=== PATIENT | female | born 1935 | race Caucasian/White ===

== ENCOUNTER 2023-05-29 17:32 | Emergency (ER) | payer MEDICARE ==
[~2023-05-29] VITALS: Ht 149.9 cm; Wt 50.8 kg
[2023-05-29 18:26] LABS: MEAN CORPUSCULAR HEMOGLOBIN 28.1 uug (24.7-32.8); MEAN CORPUSCULAR VOLUME 88.4 fL (75.5-95.3); PLATELET COUNT (AUTO) 214 K/uL (179-408)
[2023-05-29 18:33] LABS: CREATININE 0.7 mg/dL (0.6-1.3); POTASSIUM 3.8 mmol/L (3.5-5.1)
[2023-05-29] MEDS ORDERED: VITAMIN D3 PO (18:48)
[2023-05-29] MEDS ORDERED: BUSP15TA3 PO (18:48)
[2023-05-29] MEDS ORDERED: OXYC5CAP18 PO (18:48)
[2023-05-29] MEDS ORDERED: AMPH10CA8 PO (18:48)
[2023-05-29] MEDS ORDERED: ESCI20TA44 PO (18:48)
[2023-05-29] MEDS ORDERED: ACET-2030 PO (18:48)
[2023-05-29] MEDS ORDERED: FURO40TA5 PO (18:48)
[2023-05-29] MEDS ORDERED: NALO4SPR BNOSTRILS (18:48)
[2023-05-29] MEDS ORDERED: FERR325T28 PO (18:48)
[2023-05-29] MEDS ORDERED: ATOR40TA PO (18:48)
[2023-05-29] MEDS ORDERED: LEVO50TA8 PO (18:48)
[2023-05-29] MEDS ORDERED: ALEN10TA26 PO (18:48)
[2023-05-29] MEDS ORDERED: GABA-532 PO (18:48)
[2023-05-29] MEDS ORDERED: POTA-88 PO (18:48)
[2023-05-29] MEDS ORDERED: CAPS42.52 TP (18:48)
[2023-05-29] MEDS ORDERED: METO-356 PO (18:48)
[2023-05-29] MEDS ORDERED: MAG355OR35 PO (18:48)
[2023-05-29] MEDS ORDERED: LIDO30AD10 TP (18:48)
[2023-05-29] MEDS ORDERED: MAGN400O6 PO (18:48)
[2023-05-29] MEDS ORDERED: LISI20TA30 PO (18:48)
[2023-05-29] MEDS ORDERED: OMEP20CA15 PO (18:48)
[2023-05-29] MEDS ORDERED: ALPR0.25 PO (18:48)
[2023-05-29] MEDS ORDERED: WARF3TAB59 PO (18:48)
[2023-05-29] MEDS ORDERED: WARF-58 PO (18:48)
[2023-05-29] MEDS ORDERED: POLY250017 PO (18:48)
[2023-05-29] MEDS ORDERED: SENN8.6T19 PO (18:48)
--- NOTE | 2023-05-29 19:04 | NUR ---
wayne care done
--- NOTE | 2023-05-29 19:04 | NUR ---
ua collected and sent to lab
--- NOTE | 2023-05-29 19:04 | NUR ---
seen and examined by
[2023-05-29 19:14] LABS: *BILIRUBIN,URIN NEGATIVE (NEGATIVE); *BLOOD, URINE NEGATIVE (NEGATIVE); *CLARITY,URINE CLEAR (CLEAR); *COLOR,URINE YELLOW (YELLOW); *KETONES,URINE NEGATIVE (NEGATIVE); *UROBILINOGEN,URINE 0.2 E.U./dl (NORMAL); LEUKOCYTE ESTERASE ,URINE NEGATIVE (NEGATIVE); NITRITE, URINE NEGATIVE (NEGATIVE); PH,URINE 5.5 (5.0-8.0); UGLUCOSE NEGATIVE (NEGATIVE)
[2023-05-29] MEDS ORDERED: MORPHINE SULFATE 4 MG/1 ML DISP.SYRIN IV ONE ×2 (19:15→22:45)
[2023-05-29] MEDS ORDERED: MORPHINE SULFATE 2 MG/1 ML DISP.SYRIN ONE (19:19)
[2023-05-29 19:52] LABS: BILIRUBIN,DIRECT 0.1 mg/dL (0.0-0.2); BILIRUBIN,TOTAL 0.3 mg/dL (0.2-1.0); TOTAL PROTEIN, SERUM 6.3 g/dL (6.4-8.2)
--- NOTE | 2023-05-29 21:49 | NUR ---
Pt back to ER from CT.
[2023-05-29] MEDS ORDERED: VANCOMYCIN IV 1,000 MG in IV DEXTROSE 5% 250 ML IV ONE (22:15)
[2023-05-29] MEDS ORDERED: PIPERACILLIN SODIUM/TAZOBACTAM 4.5 G in IV DEXTROSE 5% 50 ML IV SCH (22:15)
--- NOTE | 2023-05-29 22:26 | NUR ---
Called Dr. Dhaliwal for Neurosurgery consult, left message.
[2023-05-29] MEDS ORDERED: PIPERACILLIN/TAZO 4.5 GM VIAL IV ONE (22:28)
[2023-05-29] MEDS ORDERED: VANCOMYCIN IV 200 ML ONE (23:16)
[2023-05-29] MEDS ORDERED: MORPHINE SULFATE 4 MG/1 ML DISP.SYRIN ONE (23:23)
--- NOTE | 2023-05-30 00:14 | NUR ---
Received call back from [facility] [facility] [employer], with transfer information, patient going to [facility], Room 4428-1, number to report , Accepted by Dr. Martha Arriaga, will call back for transport eta.
--- NOTE | 2023-05-30 00:28 | NUR ---
Received call back from [facility], eta [id number] for [facility].
[2023-05-30 02:30] VITALS: O2SAT 96
--- NOTE | 2023-05-30 03:24 | NUR ---
Report given to [facility].
[2023-05-30] MEDS ORDERED: MORPHINE SULFATE 4 MG/1 ML DISP.SYRIN ONE ×2 (03:51→05:22)
[2023-05-30] MEDS ORDERED: MORPHINE SULFATE 4 MG/1 ML DISP.SYRIN IV ONE ×2 (04:00→05:30)
--- NOTE | 2023-05-30 05:14 | NUR ---
[facility] arrived to ER to transport patient to [facility], report and documentation given to EMT.
== END 2023-05-30 05:15 | disposition short-term general hospital (02) ==
LOC: ER 17:49
DX: M46.26 Osteomyelitis of vertebra, lumbar region (principal); M46.46 Discitis, unspecified, lumbar region; R10.30 Lower abdominal pain, unspecified; G06.1 Intraspinal abscess and granuloma; R07.89 Other chest pain; I48.91 Unspecified atrial fibrillation; K21.9 Gastro-esophageal reflux disease without esophagitis; E78.5 Hyperlipidemia, unspecified; I10 Essential (primary) hypertension; E03.9 Hypothyroidism, unspecified; I25.10 Atherosclerotic heart disease of native coronary artery without angina pectoris; Z95.0 Presence of cardiac pacemaker; Z95.1 Presence of aortocoronary bypass graft; Z79.01 Long term (current) use of anticoagulants; Z79.899 Other long term (current) drug therapy; Z20.822 Contact with and (suspected) exposure to COVID-19
CPT/HCPCS: 99285; 72131; 96365; 71045; 96366 ×2; 96375; 80076; 80048; 81003; 83880; 85025; 85610; 87040 ×2; 84484; 36415; 74176; 96368; 96376; 87426; J2543; J3370; J2270 ×4; A4663; C1758